=== PATIENT | male | born 1995 | race African-American/Black ===

== ENCOUNTER 2019-07-12 16:07 | Emergency (ER) | payer OTHER ==
[~2019-07-12] VITALS: Ht 182.9 cm; Wt 78.0 kg
[2019-07-12 20:12] VITALS: BP 119/63
== END 2019-07-12 20:13 | disposition home or self-care (01) ==
LOC: ER 16:07
DX: S62.101A Fracture of unspecified carpal bone, right wrist, initial encounter for closed fracture (principal); W01.0XXA Fall on same level from slipping, tripping and stumbling without subsequent striking against object, initial encounter; Y93.67 Activity, basketball; Y92.89 Other specified places as the place of occurrence of the external cause; Y99.8 Other external cause status
CPT/HCPCS: 29125; 73110; 99283; A4565

== ENCOUNTER 2019-10-08 17:51 | Emergency (ER) | payer OTHER | END 2019-10-08 18:58 | disposition left against medical advice (07) | LOC: ER 17:51 | DX: R06.02 Shortness of breath (principal); Z53.21 Procedure and treatment not carried out due to patient leaving prior to being seen by health care provider ==